=== PATIENT | female | born 1945 | race Caucasian/White ===

== ENCOUNTER 2018-11-12 06:05 | Inpatient (IN) | payer MEDICARE, MEDICAID ==
[2018-11-12 07:33] LABS: APPEARANCE,URINE SLIGHTLY-CLOUDY; BILIRUBIN,URINE NEGATIVE (NEGATIVE); GLUCOSE, URINE NEGATIVE (NEGATIVE); KETONES,URINE NEGATIVE (NEGATIVE); LEUKOCYTE ESTERASE,URINE NEGATIVE (NEGATIVE); NITRITE,URINE NEGATIVE (NEGATIVE); PROTEIN,URINE NEGATIVE (NEGATIVE); URINE SPECIFIC GRAVITY 1.016; UROBILINOGEN,URINE NEGATIVE mg/dL (<2.0)
[2018-11-12 07:34] LABS: COLOR,URINE YELLOW
[2018-11-12 09:04] LABS: ABSOLUTE BASOPHILS # (AUTO) 0.1 10^3/uL (0.0-0.2); ABSOLUTE EOSINOPHILS # (AUTO) 0.1 10^3/uL (0.0-0.6); ABSOLUTE LYMPHOCYTES (AUTO) 1.6 10^3/uL (0.5-4.7); ABSOLUTE MONOCYTES (AUTO) 0.4 10^3/uL (0.1-1.4); ABSOLUTE NEUT (AUTO) 5.1 10^3/uL (1.7-8.2); BASOPHILS % (AUTO) 1.4 % (0-2); HEMATOCRIT 30.8 % (36.0-47.0); HEMOGLOBIN 10.3 g/dL (12.0-15.5); LYMPHOCYTES % (AUTO) 21.7 % (13-45); MEAN CORPUSCULAR HEMOGLOBIN 28.1 pg (27.0-33.4); MEAN CORPUSCULAR HGB CONC 33.3 g/dL (32.0-36.0); MEAN CORPUSCULAR VOLUME 85 fl (80-97); MONOCYTES % (AUTO) 5.3 % (3-13); PLATELET COUNT 310 10^3/uL (150-450); RED BLOOD COUNT 3.65 10^6/uL (3.72-5.28); RED CELL DISTRIBUTION WIDTH 16.6 % (11.5-14.0); SEGMENTED NEUTROPHILS % (AUTO) 70.6 % (42-78); TOTAL CELLS COUNTED % (AUTO) 100 %; WHITE BLOOD COUNT 7.3 10^3/uL (4.0-10.5)
[2018-11-12 09:23] LABS: ALANINE AMINOTRANSFERASE 14 U/L (9-52); ALBUMIN 3.7 g/dL (3.5-5.0); ALKALINE PHOSPHATASE 101 U/L (38-126); ANION GAP 8 (5-19); ASPARTATE AMINO TRANSFERASE 17 U/L (14-36); BILIRUBIN,DIRECT 0.3 mg/dL (0.0-0.4); BILIRUBIN,TOTAL 0.4 mg/dL (0.2-1.3); BLOOD UREA NITROGEN 19 mg/dL (7-20); CALCIUM 9.4 mg/dL (8.4-10.2); CARBON DIOXIDE 25 mmol/L (22-30); CHLORIDE 105 mmol/L (98-107); CREATINE KINASE 38 U/L (30-135); GLUCOSE 89 mg/dL (75-110); POTASSIUM 3.6 mmol/L (3.6-5.0); SODIUM 138.1 mmol/L (137-145); TOTAL PROTEIN 6.9 g/dL (6.3-8.2)
[2018-11-12] MEDS ORDERED: POTASSI CL 20 MEQ/50 ML RIDER 20 MEQ/50 ML RTUPB IV ONE (09:31)
[2018-11-12 09:34] LABS: CREATINE KINASE MB 0.52 ng/mL (<4.55)
[2018-11-12 09:35] LABS: TROPONIN I < 0.012 ng/mL
[2018-11-12] MEDS ORDERED: ONDANSETRON HCL INJ/PF 4 MG/2 ML SDV IV ONE (10:17)
--- NOTE | 2018-11-12 11:24 | ER Document Report ---
Entered by MANJIT BLISS SCRIBE 11/12/18 0924 Acting as scribe for:LIBRADO PINEDA MD ED General - General Chief Complaint: General Weakness Stated Complaint: WEAKNESS Time Seen by Provider: 11/12/18 09:07 Notes: Patient is a 72-year-old female presenting to the emergency department complaining of paralysis. Patient states that earlier this morning she woke up and could not move at all. Patient states that in October 2017 she was admitted to [facility] for 6 days for the same incident. Patient states that she was given potassium for suspected hypokalemic periodic paralysis. This 72-year-old female patient was admitted to [facility] on 10/17/2018 for generalized muscle weakness. She stayed for 6 days. During that time she had extensive neurological work-up to include CT scans and MRI scans and found a bulging C5 disc, and a low potassium. She was given potassium. In talking with the daughter, it sounds like her diagnosis may have been hypokalemic periodic paralysis. She was discharged home where [place] [facility]. She had home health helping care for her. She reports that by this past Friday she was up walking some using her walker and felt that she was improved enough to come to [place] and visit her daughter. She had her nephew drive her down here. Early this morning she noticed an onset of the near paralysis similar to what she had at beginning of the month. She is able to move her extremities from side to side but cannot lift them up and hold them against gravity. After a work-up here and IV potassium, the patient denies any improvement, and mentions that she might just need to be placed in a rehab facility. - Related Data Allergies/Adverse Reactions: diphenhydramine [From Benadryl] Allergy (Verified 11/12/18 07:31) promethazine [From Phenergan] Allergy (Verified 11/12/18 07:31) Past Medical History - General Information source: Patient, Relative - Social History Smoking Status: Never Smoker Cigarette use (# per day): No Chew tobacco use (# tins/day): No Smoking Education Provided: No Frequency of alcohol use: None Drug Abuse: None Lives with: Family Family History: Reviewed & Not Pertinent Patient has suicidal ideation: No Patient has homicidal ideation: No - Past Medical History Cardiac Medical History: Reports: Hx Congestive Heart Failure, Hx Coronary Artery Disease, Hx Heart Attack - X 2, Hx Hypercholesterolemia, Hx Hypertension Pulmonary Medical History: Reports: Hx Asthma EENT Medical History: Reports: Eyes - Cataracts Neurological Medical History: Reports: Other - Possibly has hypokalemic periodic paralysis Endocrine Medical History: Reports: None Renal/ Medical History: Reports: None GI Medical History: Reports: None Skin Medical History: Reports None Psychiatric Medical History: Reports: Hx Anxiety Past Surgical History: Reports: Hx Abdominal Surgery - Gastric tumor resection, endoscopically, Hx Appendectomy, Hx Cardiac Surgery - Porcine aortic valve repla cement, Hx Cholecystectomy, Hx Coronary Artery Bypass Graft - 5 vessel bypass in 2003, Hx Coronary Stent - Several stents, currently has 9 stents with the last one being placed in , Hx Gynecologic Surgery - Ovarian cancer 1975 treated by hysterectomy, Hx Hysterectomy, Hx Vascular Surgery - Right carotid endarterectomy., Other - Left eye cataract. Right face melanoma excision. Review of Systems - Review of Systems Constitutional: Weakness EENT: No symptoms reported Cardiovascular: No symptoms reported Respiratory: No symptoms reported Gastrointestinal: No symptoms reported Genitourinary: See HPI Female Genitourinary: Post menopausal Musculoskeletal: See HPI, Neck pain Skin: No symptoms reported Hematologic/Lymphatic: No symptoms reported Neurological/Psychological: Weakness -: Yes All other systems reviewed and negative Physical Exam - Vital signs Vitals: Resp Pulse Ox 18 99 11/12/18 06:58 11/12/18 06:58 - Notes Notes: Physical Exam: General: Alert, appears well. HEENT: Normocephalic. Atraumatic. PERRL. Extraocular movements intact. Oropharynx clear. Neck: Supple. Non-tender. Respiratory: No respiratory distress. Clear and equal breath sounds bilaterally. Cardiovascular: Bruit in the right carotid artery. Abdominal: Normal Inspection. Non-tender. No distension. Normal Bowel Sounds. Back: Non-tender. No deformity or step off. Extremities: Muscle weakness when attempting to move against gravity. Upper extremities: Normal inspection. Normal ROM. Lower extremities: Normal inspection. No edema. Normal ROM. Neurological: Generalized paralysis. AAOx4. Normal speech. Psychological: Normal affect. Normal Mood. Skin: Warm. Dry. Normal color. Course - Vital Signs Vital signs: Temp Pulse Resp BP Pulse Ox 98.1 F 65 15 161/66 H 99 11/12/18 07:30 11/12/18 07:30 11/12/18 10:01 11/12/18 10:01 11/12/18 10:01 - Laboratory Result Diagrams: 11/12/18 08:50 11/12/18 08:50 Laboratory results interpreted by me: 11/12/18 08:50 RBC 3.65 L Hgb 10.3 L Hct 30.8 L RDW 16.6 H - EKG Interpretation by Me EKG shows normal: Sinus rhythm, [place], Intervals, ST-T Waves. abnormal: QRS Complexes - Borderline inferior Q waves Rate: Normal - 64 Rhythm: NSR - Consults Dr. Rodriguez Time consulted: 11:41 Consulted provider: will come to ER Discharge - Discharge Clinical Impression: Generalized muscle weakness, Hypokalemic periodic paralysis Condition: Stable Disposition: ADMITTED INPATIENT Admitting Provider: Michael (Hospitalist) Unit Admitted: CU Scribe Attestation: 11/12/18 11:47 I personally performed the services described in the documentation, reviewed and edited the documentation which was dictated to the scribe in my presence, and it accurately records my words and actions. I personally performed the services described in the documentation, reviewed and edited the documentation which was dictated to the scribe in my presence, and it accurately records my words and actions.
[2018-11-12 12:56] LABS: FREE T3 4.34 pg/mL (2.77-5.27); FREE T4 (FREE THYROXINE) 1.15 ng/dL (0.78-2.19)
[2018-11-12 13:10] LABS: THYROID STIMULATING HORMONE 2.7 uIU/mL (0.47-4.68)
[2018-11-12] MEDS ORDERED: PROMETHAZINE HCL INJ 25 MG/1 ML VIAL IV PRN (13:27)
[2018-11-12] MEDS ORDERED: ACETAMINOPHEN 325 MG TABLET PO PRN (13:27)
[2018-11-12] MEDS ORDERED: ONDANSETRON HCL INJ/PF 4 MG/2 ML SDV IV PRN (13:27)
[2018-11-12] MEDS ORDERED: TEMAZEPAM 7.5 MG CAPSULE PO PRN (13:27)
[2018-11-12] MEDS ORDERED: IPRATROPIUM/ALBUTEROL 0.5-2.5 MG/3 ML AMPUL NEB PRN (13:27)
[2018-11-12] MEDS ORDERED: OXYCODONE-ACETAMINOPHEN 5-325 MG TABLET PO PRN (13:27)
--- NOTE | 2018-11-12 13:57 | PDOC H&P ---
History of Present Illness Admission Date/PCP: 11/12/18 12:16 History of Present Illness: LIUDMILA BANERJEE is a 72 year old female past medical history of CAD status post PCI x12 stents, CABG, CVA, right carotid stent, hypertension, gastric cancer, recently hospitalized at [facility] for generalized weakness" below neck paralysis", stayed there for 6 days, had extensive neurologic and cardiac work-up, which were all negative, diagnosed with hypokalemic periodic paralysis started on steroids, discharged to rehab, left rehab 2 weeks ago, is back [facility], living independently, last Friday traveled to [place] to see her daughter, was doing fine until 2 days ago when she started feeling generalized weakness, last night about 1 AM she started to feel numbness below the neck similar to the episode prior to being hospitalized at [facility]. As per daughter patient was not discharged on either spironolactone or acetazolamide. Prior to recent hospitalization at [facility] her diuretics were increased by her web retailer. Rail Technician is Dr.Gregory Molina. Denies any excessive exercise, high carbohydrate diet, fever, chills, nausea, vomiting, diarrhea, constipation or any urinary symptoms. Bowel and bladder functions intact. On physical examination she is able to move her distal extremities however her proximal extremities are all weak, cannot left arms or legs against gravity. No focal neurological deficits, sensation is intact. Labs: Hemoglobin 10.3, potassium 3.6, magnesium 1.6, CK 38, CK-MB 0.52, troponin < 0012, TSH 2.7, T4 1.1, T3 4.3. Past Medical History Cardiac Medical History: Reports: Atrial Fibrillation, Congestive Heart Failure, Coronary Artery Disease, Myocardial Infarction - X 2, Hyperlipidema, Hypertension Pulmonary Medical History: Reports: Asthma EENT Medical History: Reports: Eyes - Cataracts Neurological Medical History: Reports: Other - Possibly has hypokalemic periodic paralysis Endocrine Medical History: Reports: None Renal/ Medical History: Reports: None GI Medical History: Reports: None Skin Medical History: Reports: None Past Surgical History Past Surgical History: Reports: Appendectomy, Cholecystectomy, Coronary Artery Bypass Graft - 5 vessel bypass in 2003, Coronary Stent - Several stents, currently has 9 stents with the last one being placed in , Hysterectomy, Vascular Surgery - Right carotid endarterectomy., Other - Left eye cataract. Right face melanoma excision. Social History Lives with: Family Smoking Status: Never Smoker Family History Family History: Reviewed & Not Pertinent Parental Family History Reviewed: Yes Children Family History Reviewed: Yes Sibling(s) Family History Reviewed.: Yes Medication/Allergy Allergies/Adverse Reactions: diphenhydramine [From Benadryl] Allergy (Verified 11/12/18 07:31) promethazine [From Phenergan] Allergy (Verified 11/12/18 07:31) Review of Systems Review of Systems: as per hpi Physical Exam Vital Signs: Temp Pulse Resp BP Pulse Ox 98.1 F 65 15 178/88 H 99 11/12/18 07:30 11/12/18 07:30 11/12/18 12:01 11/12/18 12:01 11/12/18 12:01 Intake & Output 11/11/18 11/12/18 11/13/18 06:59 06:59 06:59 Intake Total 50 Balance 50 Weight 58.967 kg General appearance: PRESENT: no acute distress, well-developed, well-nourished Head exam: PRESENT: atraumatic, normocephalic Eye exam: PRESENT: conjunctiva pink, EOMI, PERRLA. ABSENT: scleral icterus Ear exam: PRESENT: normal external ear exam Mouth exam: PRESENT: moist, tongue midline Neck exam: ABSENT: carotid bruit, JVD, lymphadenopathy, thyromegaly Respiratory exam: PRESENT: clear to auscultation keven. ABSENT: rales, rhonchi, wheezes Cardiovascular exam: PRESENT: RRR. ABSENT: diastolic murmur, rubs, systolic murmur Pulses: PRESENT: normal dorsalis pedis pul Vascular exam: PRESENT: normal capillary refill GI/Abdominal exam: PRESENT: normal bowel sounds, soft. ABSENT: distended, guarding, mass, organolmegaly, rebound, tenderness Rectal exam: PRESENT: deferred Extremities exam: PRESENT: full ROM. ABSENT: calf tenderness, clubbing, pedal edema Neurological exam: PRESENT: alert, awake, oriented to person, oriented to place, oriented to time, oriented to situation, CN II-XII grossly intact, motor sensory deficit - Distal extremity strength 5/5. Proximal extremities strength 3/5. Psychiatric exam: PRESENT: appropriate affect, normal mood. ABSENT: homicidal ideation, suicidal ideation Skin exam: PRESENT: dry, intact, warm. ABSENT: cyanosis, rash Results Laboratory Results: 11/12/18 08:50 11/12/18 08:50 11/12/18 11/12/18 11/12/18 07:06 08:50 08:50 WBC 7.3 RBC 3.65 L Hgb 10.3 L Hct 30.8 L MCV 85 MCH 28.1 MCHC 33.3 RDW 16.6 H Plt Count 310 Seg Neutrophils % 70.6 Lymphocytes % 21.7 Monocytes % 5.3 Eosinophils % 1.0 Basophils % 1.4 Absolute Neutrophils 5.1 Absolute Lymphocytes 1.6 Absolute Monocytes 0.4 Absolute Eosinophils 0.1 Absolute Basophils 0.1 Sodium 138.1 Potassium 3.6 Chloride 105 Carbon Dioxide 25 Anion Gap 8 BUN 19 Creatinine 0.81 Est GFR ( Amer) > 60 Est GFR (Non-Af Amer) > 60 Glucose 89 Calcium 9.4 Magnesium Total Bilirubin 0.4 AST 17 ALT 14 Alkaline Phosphatase 101 Total Protein 6.9 Albumin 3.7 TSH Free T4 Free T3 pg/mL Urine Color YELLOW Urine Appearance SLIGHTLY-CLOUDY Urine pH 6.0 Ur Specific [place] 1.016 Urine Protein NEGATIVE Urine Glucose (UA) NEGATIVE Urine Ketones NEGATIVE Urine Blood NEGATIVE Urine Nitrite NEGATIVE Ur Leukocyte Esterase NEGATIVE Urine WBC (Auto) 3 Urine RBC (Auto) 1 11/12/18 11/12/18 08:50 08:50 WBC RBC Hgb Hct MCV MCH MCHC RDW Plt Count Seg Neutrophils % Lymphocytes % Monocytes % Eosinophils % Basophils % Absolute Neutrophils Absolute Lymphocytes Absolute Monocytes Absolute Eosinophils Absolute Basophils Sodium Potassium Chloride Carbon Dioxide Anion Gap BUN Creatinine Est GFR ( Amer) Est GFR (Non-Af Amer) Glucose Calcium Magnesium 1.6 Total Bilirubin AST ALT Alkaline Phosphatase Total Protein Albumin TSH 2.70 Free T4 1.15 Free T3 pg/mL 4.34 Urine Color Urine Appearance Urine pH Ur Specific [place] Urine Protein Urine Glucose (UA) Urine Ketones Urine Blood Urine Nitrite Ur Leukocyte Esterase Urine WBC (Auto) Urine RBC (Auto) 11/12/18 11/12/18 08:50 08:50 Creatine Kinase 38 CK-MB (CK-2) 0.52 Troponin I < 0.012 Assessment and Plan - Diagnosis (1) Generalized muscle weakness Is this a current diagnosis for this admission?: Yes Plan: Likely due to hypokalemic periodic paralysis. No EKG changes. Potassium 3.6, magnesium 1.6, CK 38, TSH 2.7, T4 1.1, T3 4.3 Admit to telemetry, IV steroids, potassium level every 8, PT/ST/OT, supportive measures, spironolactone, acetazolamide. Will DC to rehab upon symptomatic improvement. (2) Hypokalemic periodic paralysis Is this a current diagnosis for this admission?: Yes Plan: As per #1. (3) CAD (coronary artery disease) Qualifiers: Coronary Disease-Associated Artery/Lesion type: bypass graft, autologous artery Associated angina: without angina Qualified Code(s): I25.810 - Ather osclerosis of coronary artery bypass graft(s) without angina pectoris Is this a current diagnosis for this admission?: Yes Plan: Denies any anginal symptoms. Status post PCI x4 and CABG. Rail Technician Dr. Demarcus Molina at [facility]. Continue antiplatelets, beta-blockers, CINDY, statins. (4) HTN (hypertension) Is this a current diagnosis for this admission?: Yes Plan: Restart home meds. Monitor vitals. Adjust meds as needed. PRN hydralazine. (5) Hyperlipidemia Is this a current diagnosis for this admission?: Yes Plan: Restart home meds. (6) CVA (cerebral vascular accident) Is this a current diagnosis for this admission?: Yes Plan: History of remote CVA. Optimize BP, antiplatelets, statins. PT/OT.
--- NOTE | 2018-11-12 14:19 | ADVANCED CARE ---
- Diagnosis (1) Generalized muscle weakness Diagnosis Current: Yes (2) Hypokalemic periodic paralysis Diagnosis Current: Yes (3) CAD (coronary artery disease) Diagnosis Current: Yes (4) HTN (hypertension) Diagnosis Current: Yes (5) Hyperlipidemia Diagnosis Current: Yes (6) CVA (cerebral vascular accident) Diagnosis Current: Yes Attendance: Melva He daughter who has POA. Resuscitation Status: Do Not Intubate Discussion: Patient with underlying multiple comorbidities such as CAD, CABG, CVA, hypertension, gastric cancer, presenting with generalized weakness likely due to periodic hypokalemic paralysis. Patient has a living well POA her daughter who was present at the bedside. Discussed CODE STATUS, patient wants to be DNR/DNI at this point. Designated POA Melva He is a [employer] and can be reached at [phone]. Time Spent: 20 minutes
[2018-11-12] MEDS ORDERED: NORMAL SALINE 250 ML IV ONE (16:51)
[2018-11-12] MEDS: SPIRONOLACTONE 25 MG TABLET PO SCH (17:16)
[2018-11-12] MEDS: METHYLPREDNISOLONE INJ 40 MG/1 ML SDV IV SCH ×2 (17:18→21:19)
[2018-11-12] MEDS: HEPARIN SOD (PORCINE) 5,000 UNIT/ML 1 ML SYRINGE SUBCUT SCH ×2 (17:21→21:19)
[2018-11-12] MEDS: DOCUSATE SODIUM 100 MG CAPSULE PO SCH (18:48)
[2018-11-12] MEDS: POTASSIUM CHLORIDE 10 MEQ CAPSULE.ER PO SCH (18:48)
[2018-11-12] MEDS: HYDRALAZINE HCL INJ/PF 20 MG/1 ML SDV IV PRN (21:17)
[2018-11-12] MEDS: FAMOTIDINE 20 MG TABLET PO SCH (21:19)
--- NOTE | 2018-11-12 23:00 | EKG REPORT ---
SEVERITY:- BORDERLINE ECG - SINUS RHYTHM BORDERLINE INFERIOR Q WAVES : Confirmed by: Maral Hooks 12-Nov-2018 22:58:42
[2018-11-13 04:52] LABS: ABSOLUTE LYMPHOCYTES (AUTO) 0.7 10^3/uL (0.5-4.7); ABSOLUTE NEUT (AUTO) 2.9 10^3/uL (1.7-8.2); BASOPHILS % (AUTO) 0.2 % (0-2); HEMATOCRIT 33.7 % (36.0-47.0); HEMOGLOBIN 11.2 g/dL (12.0-15.5); LYMPHOCYTES % (AUTO) 18.8 % (13-45); MEAN CORPUSCULAR HEMOGLOBIN 28.1 pg (27.0-33.4); MEAN CORPUSCULAR HGB CONC 33.2 g/dL (32.0-36.0); MEAN CORPUSCULAR VOLUME 85 fl (80-97); MONOCYTES % (AUTO) 0.8 % (3-13); PLATELET COUNT 317 10^3/uL (150-450); RED BLOOD COUNT 3.98 10^6/uL (3.72-5.28); RED CELL DISTRIBUTION WIDTH 16.7 % (11.5-14.0); SEGMENTED NEUTROPHILS % (AUTO) 80.2 % (42-78); TOTAL CELLS COUNTED % (AUTO) 100 %; WHITE BLOOD COUNT 3.6 10^3/uL (4.0-10.5)
[2018-11-13 05:23] LABS: ANION GAP 10 (5-19); BLOOD UREA NITROGEN 15 mg/dL (7-20); CARBON DIOXIDE 19 mmol/L (22-30); CHLORIDE 110 mmol/L (98-107); GLUCOSE 137 mg/dL (75-110); POTASSIUM 4.5 mmol/L (3.6-5.0); SODIUM 139.1 mmol/L (137-145)
[2018-11-13] MEDS: HYDRALAZINE HCL INJ/PF 20 MG/1 ML SDV IV PRN (06:16)
[2018-11-13] MEDS: METHYLPREDNISOLONE INJ 40 MG/1 ML SDV IV SCH ×3 (06:21→21:50)
[2018-11-13] MEDS: HEPARIN SOD (PORCINE) 5,000 UNIT/ML 1 ML SYRINGE SUBCUT SCH ×3 (06:21→21:50)
[2018-11-13] MEDS ORDERED: NITROGLYCERIN 0.4 MG/TAB 25 TAB/BOTTLE ONE (06:37)
[2018-11-13] MEDS: NITROGLYCERIN 0.4 MG/TAB 25 TAB/BOTTLE SL PRN (06:52)
[2018-11-13] MEDS ORDERED: ALPRAZOLAM 0.5 MG TABLET PO PRN (08:50)
[2018-11-13] MEDS ORDERED: RANOLAZINE 1000 MG PO SCH (10:00)
[2018-11-13] MEDS ORDERED: (PENDING PHARMACY ID) (Isosorbide Mononitrate [Isosorbide Mononitrate Er] 120 MG) PO SCH (10:00)
[2018-11-13] MEDS: POTASSIUM CHLORIDE 10 MEQ CAPSULE.ER PO SCH ×2 (10:19→17:16)
[2018-11-13] MEDS: DOCUSATE SODIUM 100 MG CAPSULE PO SCH ×2 (10:19→17:16)
[2018-11-13] MEDS: ISOSORBIDE MONONITRATE 60 MG TAB.ER.24H PO SCH (10:20)
[2018-11-13] MEDS: PRAMIPEXOLE DI-HCL 0.5 MG TABLET PO SCH (10:20)
[2018-11-13] MEDS: SPIRONOLACTONE 25 MG TABLET PO SCH (10:20)
[2018-11-13] MEDS: TICAGRELOR 90 MG TABLET PO SCH ×2 (10:20→17:16)
[2018-11-13] MEDS: RANOLAZINE 500 MG TAB.SR.12H PO SCH ×2 (10:20→21:50)
[2018-11-13] MEDS: FAMOTIDINE 20 MG TABLET PO SCH ×2 (10:20→21:50)
[2018-11-13] MEDS: NEBIVOLOL HCL 2.5 MG TABLET PO SCH (10:20)
[2018-11-13] MEDS: FLUTICASONE PROPIONATE HFA 110 MCG/PUFF 12 GM MDI IH SCH ×2 (10:21→17:16)
--- NOTE | 2018-11-13 10:48 | PDOC PROGRESS REPORT ---
Subjective Progress Note for:: 11/13/18 Subjective:: LIUDMILA BANERJEE is a 72 year old female past medical history of CAD status post PCI x12 stents, CABG, CVA, right carotid stent, hypertension, gastric cancer, recently hospitalized at [facility] for generalized weakness" below neck paralysis", stayed there for 6 days, had extensive neurologic and cardiac work-up, which were all negative, diagnosed with hypokalemic periodic paralysis started on steroids, discharged to rehab, left rehab 2 weeks ago, is b ack to baseline, living independently, last Friday traveled to [place] to see her daughter, was doing fine until 2 days ago when she started feeling generalized weakness, last night about 1 AM she started to feel numbness below the neck similar to the episode prior to being hospitalized at [facility]. As per daughter patient was not discharged on either spironolactone or acetazolamide. Prior to recent hospitalization at [facility] her diuretics were increased by her information lead. Apartment Community Manager is Dr.Gregory Molina. Denies any excessive exercise, high carbohydrate diet, fever, chills, nausea, vomiting, diarrhea, constipation or any urinary symptoms. Bowel and bladder fun ctions intact. On physical examination she is able to move her distal extremities however her proximal extremities are all weak, cannot left arms or legs against gravity. No focal neurological deficits, sensation is intact. Labs: Hemoglobin 10.3, potassium 3.6, magnesium 1.6, CK 38, CK-MB 0.52, troponin < 0012, TSH 2.7, T4 1.1, T3 4.3. 11/13/2018. No acute events overnight, significant improvement of her symptoms, patient able to lift bilateral upper extremity against gravity, able to turn in the bed. Still complaining of proximal bilateral lower extremity weakness, denies any fever, chills, nausea, vomiting, diarrhea, constipation or any urinary symptoms. Reason For Visit: HYPOKALEMIC PERIODIC PARALYSIS Physical Exam Vital Signs: Temp Pulse Resp BP Pulse Ox 97.7 F 80 16 151/49 H 96 11/13/18 07:58 11/13/18 08:32 11/13/18 08:32 11/13/18 07:58 11/13/18 08:32 Intake & Output 11/12/18 11/13/18 11/14/18 06:59 06:59 06:59 Intake Total 167 Balance 167 Weight 65.8 kg General appearance: PRESENT: no acute distress, well-developed, well-nourished Head exam: PRESENT: atraumatic, normocephalic Eye exam: PRESENT: conjunctiva pink, EOMI, PERRLA. ABSENT: scleral icterus Ear exam: PRESENT: normal external ear exam Mouth exam: PRESENT: moist, tongue midline Neck exam: ABSENT: carotid bruit, JVD, lymphadenopathy, thyromegaly Respiratory exam: PRESENT: clear to auscultation keven. ABSENT: rales, rhonchi, wheezes Cardiovascular exam: PRESENT: RRR. ABSENT: diastolic murmur, rubs, systolic murmur Pulses: PRESENT: normal dorsalis pedis pul Vascular exam: PRESENT: normal capillary refill GI/Abdominal exam: PRESENT: normal bowel sounds, soft. ABSENT: distended, guarding, mass, organolmegaly, rebound, tenderness Rectal exam: PRESENT: deferred Extremities exam: PRESENT: full ROM. ABSENT: calf tenderness, clubbing, pedal edema Neurological exam: PRESENT: alert, awake, oriented to person, oriented to place, oriented to time, oriented to situation, CN II-XII grossly intact. ABSENT: motor sensory deficit - Bilateral lower extremity proximal muscle weakness strength 3/5. Bilateral upper extremity proximal muscle weakness, strength 4/5. Psychiatric exam: PRESENT: appropriate affect, normal mood. ABSENT: homicidal ideation, suicidal ideation Skin exam: PRESENT: dry, intact, warm. ABSENT: cyanosis, rash Results Laboratory Results: 11/13/18 04:06 11/13/18 04:06 11/12/18 11/12/18 11/12/18 08:50 14:23 22:01 WBC RBC Hgb Hct MCV MCH MCHC RDW Plt Count Seg Neutrophils % Lymphocytes % Monocytes % Eosinophils % Basophils % Absolute Neutrophils Absolute Lymphocytes Absolute Monocytes Absolute Eosinophils Absolute Basophils Sodium Potassium 3.9 4.7 Chloride Carbon Dioxide Anion Gap BUN Creatinine Est GFR ( Amer) Est GFR (Non-Af Amer) Glucose Calcium TSH 2.70 Free T4 1.15 Free T3 pg/mL 4.34 11/13/18 11/13/18 04:06 04:06 WBC 3.6 L RBC 3.98 Hgb 11.2 L Hct 33.7 L MCV 85 MCH 28.1 MCHC 33.2 RDW 16.7 H Plt Count 317 Seg Neutrophils % 80.2 H Lymphocytes % 18.8 Monocytes % 0.8 L Eosinophils % 0.0 Basophils % 0.2 Absolute Neutrophils 2.9 Absolute Lymphocytes 0.7 Absolute Monocytes 0.0 L Absolute Eosinophils 0.0 Absolute Basophils 0.0 Sodium 139.1 Potassium 4.5 Chloride 110 H Carbon Dioxide 19 L Anion Gap 10 BUN 15 Creatinine 0.75 Est GFR ( Amer) > 60 Est GFR (Non-Af Amer) > 60 Glucose 137 H Calcium 10.0 TSH Free T4 Free T3 pg/mL 11/12/18 11/12/18 08:50 08:50 Creatine Kinase 38 CK-MB (CK-2) 0.52 Troponin I < 0.012 Assessment and Plan - Diagnosis (1) Generalized muscle weakness Is this a current diagnosis for this admission?: Yes Plan: Moderate improvement. Able to lift bilateral upper extremity against gravity. Likely due to hypokalemic periodic paralysis. No EKG changes. Potassium 3.6, magnesium 1.6, CK 38, TSH 2.7, T4 1.1, T3 4.3 on admission. Electrolytes WNL. Continue telemetry, IV steroids, daily BMP, PT/ST/OT, supportive measures, spironolactone, acetazolamide. Patient would like to be discharged to rehab at [facility]. Discharge planning consulted. (2) Hypokalemic periodic paralysis Is this a current diagnosis for this admission?: Yes Plan: As per #1. (3) CAD (coronary artery disease) Qualifiers: Coronary Disease-Associated Artery/Lesion type: bypass graft, autologous artery Associated angina: without angina Qualified Code(s): I25.810 - Ath erosclerosis of coronary artery bypass graft(s) without angina pectoris Is this a current diagnosis for this admission?: Yes Plan: Denies any anginal symptoms. Status post PCI x4 and CABG. Apartment Community Manager Dr. Demarcus Molina at [facility]. Continue antiplatelets, beta-blockers, CINDY, statins. (4) HTN (hypertension) Is this a current diagnosis for this admission?: Yes Plan: Restart home meds. Monitor vitals. Adjust meds as needed. PRN hydralazine. (5) Hyperlipidemia Is this a current diagnosis for this admission?: Yes Plan: Restart home meds. (6) CVA (cerebral vascular accident) Is this a current diagnosis for this admission?: Yes Plan: History of remote CVA. Optimize BP, antiplatelets, statins. PT/OT.
[2018-11-13] MEDS: ATORVASTATIN CALCIUM 80 MG TABLET PO SCH (21:50)
[2018-11-13] MEDS ORDERED: (PENDING PHARMACY ID) (Rosuvastatin Calcium [Crestor] 40 MG) PO SCH (22:00)
[2018-11-14] MEDS: HEPARIN SOD (PORCINE) 5,000 UNIT/ML 1 ML SYRINGE SUBCUT SCH ×3 (05:57→21:30)
[2018-11-14] MEDS: METHYLPREDNISOLONE INJ 40 MG/1 ML SDV IV SCH ×3 (05:57→21:30)
[2018-11-14] MEDS: HYDRALAZINE HCL INJ/PF 20 MG/1 ML SDV IV PRN (05:57)
[2018-11-14 06:01] LABS: ABSOLUTE LYMPHOCYTES (AUTO) 0.6 10^3/uL (0.5-4.7); ABSOLUTE MONOCYTES (AUTO) 0.2 10^3/uL (0.1-1.4); ABSOLUTE NEUT (AUTO) 8.3 10^3/uL (1.7-8.2); BASOPHILS % (AUTO) 0.1 % (0-2); HEMATOCRIT 28.6 % (36.0-47.0); HEMOGLOBIN 9.6 g/dL (12.0-15.5); LYMPHOCYTES % (AUTO) 6.5 % (13-45); MEAN CORPUSCULAR HEMOGLOBIN 28.4 pg (27.0-33.4); MEAN CORPUSCULAR HGB CONC 33.5 g/dL (32.0-36.0); MEAN CORPUSCULAR VOLUME 85 fl (80-97); MONOCYTES % (AUTO) 1.8 % (3-13); PLATELET COUNT 263 10^3/uL (150-450); RED BLOOD COUNT 3.37 10^6/uL (3.72-5.28); RED CELL DISTRIBUTION WIDTH 16.6 % (11.5-14.0); SEGMENTED NEUTROPHILS % (AUTO) 91.6 % (42-78); TOTAL CELLS COUNTED % (AUTO) 100 %
[2018-11-14 06:05] LABS: WHITE BLOOD COUNT 9.1 10^3/uL (4.0-10.5)
[2018-11-14 06:07] LABS: ANION GAP 8 (5-19); BLOOD UREA NITROGEN 33 mg/dL (7-20); CALCIUM 9.5 mg/dL (8.4-10.2); CARBON DIOXIDE 20 mmol/L (22-30); CHLORIDE 109 mmol/L (98-107); GLUCOSE 135 mg/dL (75-110); POTASSIUM 5.2 mmol/L (3.6-5.0); SODIUM 136.9 mmol/L (137-145)
[2018-11-14] MEDS: ISOSORBIDE MONONITRATE 60 MG TAB.ER.24H PO SCH (09:31)
[2018-11-14] MEDS: DOCUSATE SODIUM 100 MG CAPSULE PO SCH ×2 (09:31→17:48)
[2018-11-14] MEDS: SPIRONOLACTONE 25 MG TABLET PO SCH (09:32)
[2018-11-14] MEDS: NEBIVOLOL HCL 2.5 MG TABLET PO SCH (09:32)
[2018-11-14] MEDS: TICAGRELOR 90 MG TABLET PO SCH ×2 (09:32→17:48)
[2018-11-14] MEDS: FAMOTIDINE 20 MG TABLET PO SCH ×2 (09:32→21:30)
[2018-11-14] MEDS: PRAMIPEXOLE DI-HCL 0.5 MG TABLET PO SCH (09:32)
[2018-11-14] MEDS: RANOLAZINE 500 MG TAB.SR.12H PO SCH ×2 (09:32→21:30)
[2018-11-14] MEDS: FLUTICASONE PROPIONATE HFA 110 MCG/PUFF 12 GM MDI IH SCH ×2 (09:32→17:48)
--- NOTE | 2018-11-14 12:27 | PDOC PROGRESS REPORT ---
Subjective Progress Note for:: 11/14/18 Subjective:: LIUDMILA BANERJEE is a 72 year old female past medical history of CAD status post PCI x12 stents, CABG, CVA, right carotid stent, hypertension, gastric cancer, recently hospitalized at [facility] at [facility] for generalized weakness" below neck paralysis", stayed there for 6 days, had extensive neurologic and cardiac work-up, which were all negative, diagnosed with hypokalemic periodic paralysis started on steroids, discharged to rehab, left rehab 2 weeks ago, is b ack to baseline, living independently, last Friday traveled to [place] to see her daughter, was doing fine until 2 days ago when she started feeling generalized weakness, last night about 1 AM she started to feel numbness below the neck similar to the episode prior to being hospitalized at [facility]. As per daughter patient was not discharged on either spironolactone or acetazolamide. Prior to recent hospitalization at [facility] her diuretics were increased by her steel erector apprentice. Applications Programmer is Dr.Gregory Molina. Denies any excessive exercise, high carbohydrate diet, fever, chills, nausea, vomiting, diarrhea, constipation or any urinary symptoms. Bowel and bladder fun ctions intact. On physical examination she is able to move her distal extremities however her proximal extremities are all weak, cannot left arms or legs against gravity. No focal neurological deficits, sensation is intact. Labs: Hemoglobin 10.3, potassium 3.6, magnesium 1.6, CK 38, CK-MB 0.52, troponin < 0012, TSH 2.7, T4 1.1, T3 4.3. 11/13/2018. No acute events overnight, significant improvement of her symptoms, patient able to lift bilateral upper extremity against gravity, able to turn in the bed. Still complaining of proximal bilateral lower extremity weakness, denies any fever, chills, nausea, vomiting, diarrhea, constipation or any urinary symptoms. 11/14/2018. No acute events overnight. Significant improvement of upper extremity weakness, patient able to feed herself, able to hold her upper extremities against gravity. Lower extremity patient able to bend her knees and move her legs however not able to hold lower extremities up against gravity. Denies any fever, chills, nausea, vomiting, diarrhea, constipation or any urinary symptoms. Reason For Visit: HYPOKALEMIC PERIODIC PARALYSIS Physical Exam Vital Signs: Temp Pulse Resp BP Pulse Ox 97.7 F 69 16 162/62 H 96 11/14/18 07:48 11/14/18 07:48 11/14/18 07:48 11/14/18 07:48 11/14/18 07:48 Intake & Output 11/13/18 11/14/18 11/15/18 06:59 06:59 06:59 Intake Total 167 1059 Output Total 700 Balance 167 359 Weight 65.8 kg 65.4 kg General appearance: PRESENT: no acute distress, well-developed, well-nourished Head exam: PRESENT: atraumatic, normocephalic Eye exam: PRESENT: EOMI, PERRLA Ear exam: PRESENT: normal external ear exam Neck exam: ABSENT: carotid bruit, JVD, lymphadenopathy, thyromegaly Respiratory exam: PRESENT: clear to auscultation keven. ABSENT: rales, rhonchi, wheezes Cardiovascular exam: PRESENT: RRR. ABSENT: diastolic murmur, rubs, systolic murmur GI/Abdominal exam: PRESENT: normal bowel sounds, soft. ABSENT: distended, guarding, mass, organolmegaly, rebound, tenderness Extremities exam: PRESENT: full ROM. ABSENT: calf tenderness, clubbing, pedal edema Neurological exam: PRESENT: alert, awake, oriented to person, oriented to place, oriented to time, oriented to situation, CN II-XII grossly intact, motor sensory deficit - BUE strength 4/5. BLE strength 3/5. Results Laboratory Results: 11/14/18 05:30 11/14/18 05:30 11/14/18 11/14/18 05:30 05:30 WBC 9.1 D RBC 3.37 L Hgb 9.6 L Hct 28.6 L MCV 85 MCH 28.4 MCHC 33.5 RDW 16.6 H Plt Count 263 Seg Neutrophils % 91.6 H Lymphocytes % 6.5 L Monocytes % 1.8 L Eosinophils % 0.0 Basophils % 0.1 Absolute Neutrophils 8.3 H Absolute Lymphocytes 0.6 Absolute Monocytes 0.2 Absolute Eosinophils 0.0 Absolute Basophils 0.0 Sodium 136.9 L Potassium 5.2 H Chloride 109 H Carbon Dioxide 20 L Anion Gap 8 BUN 33 H Creatinine 0.98 Est GFR ( Amer) > 60 Est GFR (Non-Af Amer) 56 L Glucose 135 H Calcium 9.5 11/12/18 11/12/18 08:50 08:50 Creatine Kinase 38 CK-MB (CK-2) 0.52 Troponin I < 0.012 Assessment and Plan - Diagnosis (1) Generalized muscle weakness Is this a current diagnosis for this admission?: Yes Plan: Moderate improvement. Able to lift bilateral upper extremity against gravity. Moves bilateral lower extremity. Unable to lift against gravity. Likely due to hypokalemic periodic paralysis. No EKG changes. Potassium 3.6, magnesium 1.6, CK 38, TSH 2.7, T4 1.1, T3 4.3 on admission. Electrolytes WNL. Continue telemetry, IV steroids, daily BMP, PT/ST/OT, supportive measures, spironolactone, acetazolamide. Patient would like to be discharged to rehab at [facility]. Discharge planning consulted. (2) Hypokalemic periodic paralysis Is this a current diagnosis for this admission?: Yes Plan: As per #1. (3) CAD (coronary artery disease) Qualifiers: Coronary Disease-Associated Artery/Lesion type: bypass graft, autologous ar rudolph Associated angina: without angina Qualified Code(s): I25.810 - Atherosclerosis of coronary artery bypass graft(s) without angina pectoris Is this a current diagnosis for this admission?: Yes Plan: Denies any anginal symptoms. Status post PCI x4 and CABG. Applications Programmer Dr. Demarcus Molina at [facility]. Continue antiplatelets, beta-blockers, CINDY, statins. (4) HTN (hypertension) Is this a current diagnosis for this admission?: Yes Plan: Restart home meds. Monitor vitals. Adjust meds as needed. PRN hydralazine. (5) Hyperlipidemia Is this a current diagnosis for this admission?: Yes Plan: Restart home meds. (6) CVA (cerebral vascular accident) Is this a current diagnosis for this admission?: Yes Plan: History of remote CVA. Optimize BP, antiplatelets, statins. PT/OT.
[2018-11-14] MEDS: ATORVASTATIN CALCIUM 80 MG TABLET PO SCH (21:30)
--- NOTE | 2018-11-14 23:45 | EKG REPORT ---
SEVERITY:- ABNORMAL ECG - SINUS RHYTHM PROBABLE INFERIOR INFARCT, OLD : Confirmed by: Maral Hooks 14-Nov-2018 23:44:28
[2018-11-15] MEDS: METHYLPREDNISOLONE INJ 40 MG/1 ML SDV IV SCH ×3 (05:11→22:50)
[2018-11-15] MEDS: HEPARIN SOD (PORCINE) 5,000 UNIT/ML 1 ML SYRINGE SUBCUT SCH ×3 (05:11→22:50)
[2018-11-15 07:04] LABS: ABSOLUTE LYMPHOCYTES (AUTO) 0.7 10^3/uL (0.5-4.7); ABSOLUTE MONOCYTES (AUTO) 0.3 10^3/uL (0.1-1.4); ABSOLUTE NEUT (AUTO) 8.9 10^3/uL (1.7-8.2); BASOPHILS % (AUTO) 0.1 % (0-2); HEMATOCRIT 30.1 % (36.0-47.0); LYMPHOCYTES % (AUTO) 6.9 % (13-45); MEAN CORPUSCULAR HGB CONC 33.3 g/dL (32.0-36.0); MEAN CORPUSCULAR VOLUME 84 fl (80-97); PLATELET COUNT 296 10^3/uL (150-450); RED BLOOD COUNT 3.58 10^6/uL (3.72-5.28); RED CELL DISTRIBUTION WIDTH 16.8 % (11.5-14.0); TOTAL CELLS COUNTED % (AUTO) 100 %; WHITE BLOOD COUNT 9.9 10^3/uL (4.0-10.5)
[2018-11-15 07:16] LABS: ANION GAP 9 (5-19); BLOOD UREA NITROGEN 42 mg/dL (7-20); CALCIUM 9.7 mg/dL (8.4-10.2); CARBON DIOXIDE 19 mmol/L (22-30); CHLORIDE 108 mmol/L (98-107); GLUCOSE 108 mg/dL (75-110); POTASSIUM 4.4 mmol/L (3.6-5.0); SODIUM 135.7 mmol/L (137-145)
--- NOTE | 2018-11-15 10:05 | PDOC PROGRESS REPORT ---
Subjective Progress Note for:: 11/15/18 Subjective:: LIUDMILA BANERJEE is a 72 year old female past medical history of CAD status post PCI x12 stents, CABG, CVA, right carotid stent, hypertension, gastric cancer, recently hospitalized at [facility] at [facility] for generalized weakness" below neck paralysis", stayed there for 6 days, had extensive neurologic and cardiac work-up, which were all negative, diagnosed with hypokalemic periodic paralysis started on steroids, discharged to rehab, left rehab 2 weeks ago, is b ack to baseline, living independently, last Friday traveled to [place] to see her daughter, was doing fine until 2 days ago when she started feeling generalized weakness, last night about 1 AM she started to feel numbness below the neck similar to the episode prior to being hospitalized at [facility]. As per daughter patient was not discharged on either spironolactone or acetazolamide. Prior to recent hospitalization at [facility] her diuretics were increased by her home office claim specialist. Electric Motors Salesperson is Dr.Gregory Molina. Denies any excessive exercise, high carbohydrate diet, fever, chills, nausea, vomiting, diarrhea, constipation or any urinary symptoms. Bowel and bladder fun ctions intact. On physical examination she is able to move her distal extremities however her proximal extremities are all weak, cannot left arms or legs against gravity. No focal neurological deficits, sensation is intact. Labs: Hemoglobin 10.3, potassium 3.6, magnesium 1.6, CK 38, CK-MB 0.52, troponin < 0012, TSH 2.7, T4 1.1, T3 4.3. 11/13/2018. No acute events overnight, significant improvement of her symptoms, patient able to lift bilateral upper extremity against gravity, able to turn in the bed. Still complaining of proximal bilateral lower extremity weakness, denies any fever, chills, nausea, vomiting, diarrhea, constipation or any urinary symptoms. 11/14/2018. No acute events overnight. Significant improvement of upper extremity weakness, patient able to feed herself, able to hold her upper extremities against gravity. Lower extremity patient able to bend her knees and move her legs however not able to hold lower extremities up against gravity. Denies any fever, chills, nausea, vomiting, diarrhea, constipation or any urinary symptoms. 11/15/2017. No acute events overnight. Significant improvement of weakness. Able to function properly with her upper extremities, lower extremities is improving, able to hold her legs against gravity for about a second, p.o. tole rant, having normal bowel and bladder movements. Denies any fever, chills, nausea, vomiting, diarrhea, constipation or any urinary symptoms. Reason For Visit: GENERALIZED MUSCLE WEAKNESS,HYPOKALEMIC PERIODIC Physical Exam Vital Signs: Temp Pulse Resp BP Pulse Ox 97.9 F 60 20 144/46 H 97 11/14/18 23:11 11/15/18 07:00 11/14/18 23:11 11/14/18 23:11 11/14/18 23:11 Intake & Output 11/14/18 11/15/18 11/16/18 06:59 06:59 06:59 Intake Total 1059 1342 Output Total 700 Balance 359 1342 Weight 65.4 kg 66.5 kg General appearance: PRESENT: no acute distress, well-developed, well-nourished Head exam: PRESENT: atraumatic, normocephalic Eye exam: PRESENT: conjunctiva pink, EOMI, PERRLA. ABSENT: scleral icterus Respiratory exam: PRESENT: clear to auscultation keven. ABSENT: rales, rhonchi, wheezes Cardiovascular exam: PRESENT: RRR. ABSENT: diastolic murmur, rubs, systolic murmur GI/Abdominal exam: PRESENT: normal bowel sounds, soft. ABSENT: distended, guarding, mass, organolmegaly, rebound, tenderness Neurological exam: PRESENT: alert, awake, oriented to person, oriented to place, oriented to time, oriented to situation, CN II-XII grossly intact, motor sensory deficit - BUE St 4/[address] 3/5 Results Laboratory Results: 11/15/18 06:18 11/15/18 06:18 11/15/18 11/15/18 06:18 06:18 WBC 9.9 RBC 3.58 L Hgb 10.0 L Hct 30.1 L MCV 84 MCH 28.0 MCHC 33.3 RDW 16.8 H Plt Count 296 Seg Neutrophils % 90.0 H Lymphocytes % 6.9 L Monocytes % 3.0 Eosinophils % 0.0 Basophils % 0.1 Absolute Neutrophils 8.9 H Absolute Lymphocytes 0.7 Absolute Monocytes 0.3 Absolute Eosinophils 0.0 Absolute Basophils 0.0 Sodium 135.7 L Potassium 4.4 Chloride 108 H Carbon Dioxide 19 L Anion Gap 9 BUN 42 H Creatinine 0.93 Est GFR ( Amer) > 60 Est GFR (Non-Af Amer) 59 L Glucose 108 Calcium 9.7 11/12/18 11/12/18 08:50 08:50 Creatine Kinase 38 CK-MB (CK-2) 0.52 Troponin I < 0.012 Assessment and Plan - Diagnosis (1) Generalized muscle weakness Is this a current diagnosis for this admission?: Yes Plan: Moderate improvement. Able to lift bilateral upper extremity against gravity. Moves bilateral lower extremity. Able to lift against gravity. Likely due to hypokalemic periodic paralysis. No EKG changes. Potassium 3.6, magnesium 1.6, CK 38, TSH 2.7, T4 1.1, T3 4.3 on admission. Electrolytes WNL. Continue telemetry, IV steroids, daily BMP, PT/ST/OT, supportive measures, spironolactone, acetazolamide. Patient would like to be discharged to rehab at [facility]. Discharge planning consulted. (2) Hypokalemic periodic paralysis Is this a current diagnosis for this admission?: Yes Plan: As per #1. (3) CAD (coronary artery disease) Qualifiers: Coronary Disease-Associated Artery/Lesion type: bypass graft, autologous artery Associated angina: without angina Qualified Code(s): I25.810 - Atherosclerosis of coronary artery bypass graft(s) without angina pectoris Is this a current diagnosis for this admission?: Yes Plan: Denies any anginal symptoms. Status post PCI x4 and CABG. [employer] Salesperson Dr. Demarcus Molina at [facility]. Continue antiplatelets, beta-blockers, CINDY, statins. (4) HTN (hypertension) Is this a current diagnosis for this admission?: Yes Plan: Restart home meds. Monitor vitals. Adjust meds as needed. PRN hydralazine. (5) Hyperlipidemia Is this a current diagnosis for this admission?: Yes Plan: Restart home meds. (6) CVA (cerebral vascular accident) Is this a current diagnosis for this admission?: Yes Plan: History of remote CVA. Optimize BP, antiplatelets, statins. PT/OT.
[2018-11-15] MEDS: RANOLAZINE 500 MG TAB.SR.12H PO SCH ×2 (10:37→22:51)
[2018-11-15] MEDS: PRAMIPEXOLE DI-HCL 0.5 MG TABLET PO SCH (10:38)
[2018-11-15] MEDS: NEBIVOLOL HCL 2.5 MG TABLET PO SCH (10:38)
[2018-11-15] MEDS: SPIRONOLACTONE 25 MG TABLET PO SCH (10:38)
[2018-11-15] MEDS: DOCUSATE SODIUM 100 MG CAPSULE PO SCH ×2 (10:38→17:38)
[2018-11-15] MEDS: FAMOTIDINE 20 MG TABLET PO SCH ×2 (10:38→22:50)
[2018-11-15] MEDS: ISOSORBIDE MONONITRATE 60 MG TAB.ER.24H PO SCH (10:38)
[2018-11-15] MEDS: FLUTICASONE PROPIONATE HFA 110 MCG/PUFF 12 GM MDI IH SCH ×2 (10:39→17:38)
[2018-11-15] MEDS: TICAGRELOR 90 MG TABLET PO SCH ×2 (10:39→17:38)
[2018-11-15] MEDS: HYDRALAZINE HCL INJ/PF 20 MG/1 ML SDV IV PRN (12:21)
[2018-11-15] MEDS: ATORVASTATIN CALCIUM 80 MG TABLET PO SCH (22:50)
[2018-11-16 04:44] LABS: ANION GAP 8 (5-19); BLOOD UREA NITROGEN 37 mg/dL (7-20); CALCIUM 9.6 mg/dL (8.4-10.2); CARBON DIOXIDE 21 mmol/L (22-30); CHLORIDE 107 mmol/L (98-107); GLUCOSE 114 mg/dL (75-110); POTASSIUM 4.5 mmol/L (3.6-5.0); SODIUM 136.3 mmol/L (137-145)
[2018-11-16] MEDS: METHYLPREDNISOLONE INJ 40 MG/1 ML SDV IV SCH ×3 (07:00→21:44)
[2018-11-16] MEDS: HEPARIN SOD (PORCINE) 5,000 UNIT/ML 1 ML SYRINGE SUBCUT SCH ×3 (07:00→21:44)
[2018-11-16] MEDS: NEBIVOLOL HCL 2.5 MG TABLET PO SCH (09:20)
[2018-11-16] MEDS: TICAGRELOR 90 MG TABLET PO SCH ×2 (09:20→17:21)
[2018-11-16] MEDS: SPIRONOLACTONE 25 MG TABLET PO SCH (09:20)
[2018-11-16] MEDS: DOCUSATE SODIUM 100 MG CAPSULE PO SCH ×2 (09:20→17:21)
[2018-11-16] MEDS: FLUTICASONE PROPIONATE HFA 110 MCG/PUFF 12 GM MDI IH SCH ×2 (09:21→17:21)
[2018-11-16] MEDS: PRAMIPEXOLE DI-HCL 0.5 MG TABLET PO SCH (09:21)
[2018-11-16] MEDS: FAMOTIDINE 20 MG TABLET PO SCH ×2 (09:21→21:43)
[2018-11-16] MEDS: RANOLAZINE 500 MG TAB.SR.12H PO SCH ×2 (09:21→21:44)
[2018-11-16] MEDS: ISOSORBIDE MONONITRATE 60 MG TAB.ER.24H PO SCH (09:21)
--- NOTE | 2018-11-16 10:48 | PDOC PROGRESS REPORT ---
Subjective Progress Note for:: 11/16/18 Subjective:: LIUDMILA BANERJEE is a 72 year old female past medical history of CAD status post PCI x12 stents, CABG, CVA, right carotid stent, hypertension, gastric cancer, recently hospitalized at [facility] at [facility] for generalized weakness" below neck paralysis", stayed there for 6 days, had extensive neurologic and cardiac work-up, which were all negative, diagnosed with hypokalemic periodic paralysis started on steroids, discharged to rehab, left rehab 2 weeks ago, is b ack to baseline, living independently, last Friday traveled to [place] to see her daughter, was doing fine until 2 days ago when she started feeling generalized weakness, last night about 1 AM she started to feel numbness below the neck similar to the episode prior to being hospitalized at [facility]. As per daughter patient was not discharged on either spironolactone or acetazolamide. Prior to recent hospitalization at [facility] her diuretics were increased by her automation software engineer. Lead Housekeeper is Dr.Gregory Molina. Denies any excessive exercise, high carbohydrate diet, fever, chills, nausea, vomiting, diarrhea, constipation or any urinary symptoms. Bowel and bladder fun ctions intact. On physical examination she is able to move her distal extremities however her proximal extremities are all weak, cannot left arms or legs against gravity. No focal neurological deficits, sensation is intact. Labs: Hemoglobin 10.3, potassium 3.6, magnesium 1.6, CK 38, CK-MB 0.52, troponin < 0012, TSH 2.7, T4 1.1, T3 4.3. 11/13/2018. No acute events overnight, significant improvement of her symptoms, patient able to lift bilateral upper extremity against gravity, able to turn in the bed. Still complaining of proximal bilateral lower extremity weakness, denies any fever, chills, nausea, vomiting, diarrhea, constipation or any urinary symptoms. 11/14/2018. No acute events overnight. Significant improvement of upper extremity weakness, patient able to feed herself, able to hold her upper extremities against gravity. Lower extremity patient able to bend her knees and move her legs however not able to hold lower extremities up against gravity. Denies any fever, chills, nausea, vomiting, diarrhea, constipation or any urinary symptoms. 11/15/2017. No acute events overnight. Significant improvement of weakness. Able to function properly with her upper extremities, lower extremities is improving, able to hold her legs against gravity for about a second, p.o. tole rant, having normal bowel and bladder movements. Denies any fever, chills, nausea, vomiting, diarrhea, constipation or any urinary symptoms. 11/16/2018. No acute events overnight. Improvement of weakness. Upper extremity function back to baseline, lower extremities is improving, able to hold her legs against gravity for about a second, p.o. tolerant, having normal bowel and bladder movements. Denies any fever, chills, nausea, vomiting, diarrhea, constipation or any urinary symptoms. Reason For Visit: GENERALIZED MUSCLE WEAKNESS,HYPOKALEMIC PERIODIC Physical Exam Vital Signs: Temp Pulse Resp BP Pulse Ox 97.7 F 53 L 19 179/62 H 98 11/16/18 07:40 11/16/18 07:40 11/16/18 07:40 11/16/18 07:40 11/16/18 07:40 Intake & Output 11/15/18 11/16/18 11/17/18 06:59 06:59 06:59 Intake Total 1342 955 Balance 1342 955 Weight 66.5 kg 66.1 kg General appearance: PRESENT: no acute distress, well-developed, well-nourished Head exam: PRESENT: atraumatic, normocephalic Respiratory exam: PRESENT: clear to auscultation keven. ABSENT: rales, rhonchi, wheezes Cardiovascular exam: PRESENT: RRR. ABSENT: diastolic murmur, rubs, systolic murmur Extremities exam: PRESENT: full ROM. ABSENT: calf tenderness, clubbing, pedal edema Neurological exam: PRESENT: alert, awake, oriented to person, oriented to place, oriented to time, oriented to situation, CN II-XII grossly intact, motor sensory deficit - BUE st 5/[address] 3/5 Results Laboratory Results: 11/15/18 06:18 11/16/18 03:40 11/16/18 03:40 Sodium 136.3 L Potassium 4.5 Chloride 107 Carbon Dioxide 21 L Anion Gap 8 BUN 37 H Creatinine 0.92 Est GFR ( Amer) > 60 Est GFR (Non-Af Amer) > 60 Glucose 114 H Calcium 9.6 11/12/18 11/12/18 08:50 08:50 Creatine Kinase 38 CK-MB (CK-2) 0.52 Troponin I < 0.012 Assessment and Plan - Diagnosis (1) Generalized muscle weakness Is this a current diagnosis for this admission?: Yes Plan: Moderate improvement. Able to lift bilateral upper extremity against gravity. Moves bilateral lower extremity. Able to lift against gravity. Likely due to hypokalemic periodic paralysis. No EKG changes. Potassium 3.6, magnesium 1.6, CK 38, TSH 2.7, T4 1.1, T3 4.3 on admission. Electrolytes WNL. Continue telemetry, IV steroids, daily BMP, PT/ST/OT, supportive measures, spironolactone, acetazolamide. Patient would like to be discharged to rehab at [facility]. Discharge planning consulted. (2) Hypokalemic periodic paralysis Is this a current diagnosis for this admission?: Yes Plan: As per #1. (3) CAD (coronary artery disease) Qualifiers: Coronary Disease-Associated Artery/Lesion type: bypass graft, autologous artery Associated angina: without angina Qualified Code(s): I25.810 - Atherosclerosis of coronary artery bypass graft(s) without angina pectoris Is this a current diagnosis for this admission?: Yes Plan: Denies any anginal symptoms. Status post PCI x4 and CABG. Lead Housekeeper Dr. Demarcus Molina at [facility]. Continue antiplatelets, beta-blockers, CINDY, statins. (4) HTN (hypertension) Is this a current diagnosis for this admission?: Yes Plan: Restart home meds. Monitor vitals. Adjust meds as needed. PRN hydralazine. (5) Hyperlipidemia Is this a current diagnosis for this admission?: Yes Plan: Restart home meds. (6) CVA (cerebral vascular accident) Is this a current diagnosis for this admission?: Yes Plan: History of remote CVA. Optimize BP, antiplatelets, statins. PT/OT.
[2018-11-16] MEDS: ATORVASTATIN CALCIUM 80 MG TABLET PO SCH (21:43)
[2018-11-17] MEDS: NITROGLYCERIN 0.4 MG/TAB 25 TAB/BOTTLE SL PRN ×4 (04:17→16:36)
[2018-11-17 04:38] LABS: ANION GAP 10 (5-19); BLOOD UREA NITROGEN 37 mg/dL (7-20); CALCIUM 9.6 mg/dL (8.4-10.2); CARBON DIOXIDE 20 mmol/L (22-30); CHLORIDE 105 mmol/L (98-107); GLUCOSE 118 mg/dL (75-110); POTASSIUM 4.7 mmol/L (3.6-5.0); SODIUM 134.9 mmol/L (137-145)
[2018-11-17] MEDS ORDERED: HYDRALAZINE HCL INJ/PF 20 MG/1 ML SDV IV PRN (04:57)
[2018-11-17] MEDS ORDERED: MORPHINE SULFATE 10 MG/ML INJ IV ONE (05:00)
[2018-11-17] MEDS: HEPARIN SOD (PORCINE) 5,000 UNIT/ML 1 ML SYRINGE SUBCUT SCH ×3 (05:36→21:57)
[2018-11-17] MEDS: METHYLPREDNISOLONE INJ 40 MG/1 ML SDV IV SCH ×3 (05:36→21:55)
[2018-11-17 06:04] LABS: CREATINE KINASE MB 0.77 ng/mL (<4.55); TROPONIN I 0.026 ng/mL
[2018-11-17] MEDS: RANOLAZINE 500 MG TAB.SR.12H PO SCH ×2 (09:36→21:56)
[2018-11-17] MEDS: SPIRONOLACTONE 25 MG TABLET PO SCH (09:36)
[2018-11-17] MEDS: PRAMIPEXOLE DI-HCL 0.5 MG TABLET PO SCH (09:37)
[2018-11-17] MEDS: ISOSORBIDE MONONITRATE 60 MG TAB.ER.24H PO SCH (09:37)
[2018-11-17] MEDS: NEBIVOLOL HCL 2.5 MG TABLET PO SCH (09:37)
[2018-11-17] MEDS: TICAGRELOR 90 MG TABLET PO SCH ×2 (09:37→18:17)
[2018-11-17] MEDS: FAMOTIDINE 20 MG TABLET PO SCH ×2 (09:38→21:56)
[2018-11-17] MEDS: FLUTICASONE PROPIONATE HFA 110 MCG/PUFF 12 GM MDI IH SCH ×2 (09:39→18:17)
[2018-11-17] MEDS: DOCUSATE SODIUM 100 MG CAPSULE PO SCH ×2 (09:40→18:18)
[2018-11-17] MEDS ORDERED: AMLODIPINE BESYLATE 5 MG TABLET PO SCH (10:00)
--- NOTE | 2018-11-17 10:07 | PDOC PROGRESS REPORT ---
Subjective Progress Note for:: 11/17/18 Subjective:: LIUDMILA BANERJEE is a 72 year old female past medical history of CAD status post PCI x12 stents, CABG, CVA, right carotid stent, hypertension, gastric cancer, recently hospitalized at [facility] at [facility] for generalized weakness" below neck paralysis", stayed there for 6 days, had extensive neurologic and cardiac work-up, which were all negative, diagnosed with hypokalemic periodic paralysis started on steroids, discharged to rehab, left rehab 2 weeks ago, is b ack to baseline, living independently, last Friday traveled to [place] to see her daughter, was doing fine until 2 days ago when she started feeling generalized weakness, last night about 1 AM she started to feel numbness below the neck similar to the episode prior to being hospitalized at [facility]. As per daughter patient was not discharged on either spironolactone or acetazolamide. Prior to recent hospitalization at [facility] her diuretics were increased by her liquor inspector. Effervescent Salts Compounder is Dr.Gregory Molina. Denies any excessive exercise, high carbohydrate diet, fever, chills, nausea, vomiting, diarrhea, constipation or any urinary symptoms. Bowel and bladder fun ctions intact. On physical examination she is able to move her distal extremities however her proximal extremities are all weak, cannot left arms or legs against gravity. No focal neurological deficits, sensation is intact. Labs: Hemoglobin 10.3, potassium 3.6, magnesium 1.6, CK 38, CK-MB 0.52, troponin < 0012, TSH 2.7, T4 1.1, T3 4.3. 11/13/2018. No acute events overnight, significant improvement of her symptoms, patient able to lift bilateral upper extremity against gravity, able to turn in the bed. Still complaining of proximal bilateral lower extremity weakness, denies any fever, chills, nausea, vomiting, diarrhea, constipation or any urinary symptoms. 11/14/2018. No acute events overnight. Significant improvement of upper extremity weakness, patient able to feed herself, able to hold her upper extremities against gravity. Lower extremity patient able to bend her knees and move her legs however not able to hold lower extremities up against gravity. Denies any fever, chills, nausea, vomiting, diarrhea, constipation or any urinary symptoms. 11/15/2017. No acute events overnight. Significant improvement of weakness. Able to function properly with her upper extremities, lower extremities is improving, able to hold her legs against gravity for about a second, p.o. tole rant, having normal bowel and bladder movements. Denies any fever, chills, nausea, vomiting, diarrhea, constipation or any urinary symptoms. 11/16/2018. No acute events overnight. Improvement of weakness. Upper extremity function back to baseline, lower extremities is improving, able to hold her legs against gravity for about a second, p.o. tolerant, having normal bowel and bladder movements. Denies any fever, chills, nausea, vomiting, diarrhea, constipation or any urinary symptoms. 11/17/2018. Overnight patient was complaining of chest pain, EKG unremarkable however troponin mildly elevated to 0.026 from 0.012. Resolved with nitro sublingual. On my encounter patient explained that she does not feel very well however her upper and lower extremities weakness are improving significantly. Any fever, chest pain, shortness of breath, nausea, vomiting, diarrhea, constipation or any urinary symptoms. P.o. tolerant and having normal bowel and bladder movements. Reason For Visit: GENERALIZED MUSCLE WEAKNESS,HYPOKALEMIC PERIODIC Physical Exam Vital Signs: Temp Pulse Resp BP Pulse Ox 97.7 F 59 L 29 H 187/67 H 99 11/17/18 04:19 11/17/18 07:00 11/17/18 04:19 11/17/18 04:19 11/17/18 04:19 Intake & Output 11/16/18 11/17/18 11/18/18 06:59 06:59 06:59 Intake Total 955 902 Balance 955 902 Weight 66.1 kg 66.1 kg General appearance: PRESENT: no acute distress, well-developed, well-nourished Head exam: PRESENT: atraumatic, normocephalic Respiratory exam: PRESENT: clear to auscultation keven. ABSENT: rales, rhonchi, wheezes Cardiovascular exam: PRESENT: RRR. ABSENT: diastolic murmur, rubs, systolic murmur GI/Abdominal exam: PRESENT: normal bowel sounds, soft. ABSENT: distended, guarding, mass, organolmegaly, rebound, tenderness Neurological exam: PRESENT: alert, awake, oriented to person, oriented to place, oriented to time, oriented to situation, CN II-XII grossly intact, motor sensory deficit - BUE 5/5 BLE 4/5 Results Laboratory Results: 11/15/18 06:18 11/17/18 03:50 11/17/18 03:50 Sodium 134.9 L Potassium 4.7 Chloride 105 Carbon Dioxide 20 L Anion Gap 10 BUN 37 H Creatinine 0.92 Est GFR ( Amer) > 60 Est GFR (Non-Af Amer) > 60 Glucose 118 H Calcium 9.6 11/12/18 11/12/18 11/17/18 08:50 08:50 05:16 Creatine Kinase 38 < 20 L CK-MB (CK-2) 0.52 Troponin I < 0.012 11/17/18 05:16 Creatine Kinase CK-MB (CK-2) 0.77 Troponin I 0.026 Assessment and Plan - Diagnosis (1) Chest pain Qualifiers: Ischemic chest pain type: stable angina pectoris Is this a current diagnosis for this admission?: Yes Plan: Overnight patient had chest pain EKG unremarkable however troponin elevated to 0.026. Continue antiplatelets, beta-blockers, CINDY, statins. PRN morphine and sublingual nitro. Trend troponins. If keeps rising we will consult cardiology. (2) Generalized muscle weakness Is this a current diagnosis for this admission?: Yes Plan: Moderate improvement. Able to lift bilateral upper extremity against gravity. Moves bilateral lower extremity. Able to lift against gravity. Likely due to hypokalemic periodic paralysis. No EKG changes. Potassium 3.6, magnesium 1.6, CK 38, TSH 2.7, T4 1.1, T3 4.3 on admission. Electrolytes WNL. Continue telemetry, IV steroids, daily BMP, PT/ST/OT, supportive measures, spironolactone, acetazolamide. Patient would like to be discharged to rehab at [facility]. Discharge planning consulted. (3) Hypokalemic periodic paralysis Is this a current diagnosis for this admission?: Yes Plan: As per #1. (4) CAD (coronary artery disease) Qualifiers: Coronary Disease-Associated Artery/Lesion type: bypass graft, autologous artery Associated angina: without angina Qualified Code(s): I25.810 - Atherosclerosis of coronary artery bypass graft(s) without angina pectoris Is this a current diagnosis for this admission?: Yes Plan: Denies any anginal symptoms. Status post PCI x4 and CABG. Effervescent Salts Compounder Dr. Demarcus Molina at [facility]. Continue antiplatelets, beta-blockers, CINDY, statins. (5) HTN (hypertension) Is this a current diagnosis for this admission?: Yes Plan: Restart home meds. Monitor vitals. Adjust meds as needed. PRN hydralazine. (6) Hyperlipidemia Is this a current diagnosis for this admission?: Yes Plan: Restart home meds. (7) CVA (cerebral vascular accident) Is this a current diagnosis for this admission?: Yes Plan: History of remote CVA. Optimize BP, antiplatelets, statins. PT/OT.
[2018-11-17 12:07] LABS: CREATINE KINASE MB 0.75 ng/mL (<4.55); TROPONIN I 0.015 ng/mL
--- NOTE | 2018-11-17 14:52 | EKG REPORT ---
SEVERITY:- NORMAL ECG - SINUS RHYTHM : Confirmed by: Maral Hooks 17-Nov-2018 14:52:12
--- NOTE | 2018-11-17 16:37 | PDOC TRANSFER SUMMARY ---
General Admission Date/PCP: 11/14/18 08:00 Resuscitation Status: Do Not Intubate - Transfer Diagnosis (1) Chest pain Is this a current diagnosis for this admission?: Yes (2) Generalized muscle weakness Is this a current diagnosis for this admission?: Yes (3) Hypokalemic periodic paralysis Is this a current diagnosis for this admission?: Yes (4) CAD (coronary artery disease) Is this a current diagnosis for this admission?: Yes (5) HTN (hypertension) Is this a current diagnosis for this admission?: Yes (6) Hyperlipidemia Is this a current diagnosis for this admission?: Yes (7) CVA (cerebral vascular accident) Is this a current diagnosis for this admission?: Yes - Transfer Medications Home Medications: Albuterol Sulfate [Ventolin 0.083% Neb 2.5 mg/3 mL Ampul] 2.5 mg NEB RTQ4HP PRN 11/12/18 Alprazolam [Xanax 0.5 mg Tablet] 0.5 mg PO Q8HP PRN 11/12/18 Ferrous Sulfate [Feosol 325 mg Tablet] 325 mg PO Q12 11/12/18 Fluticasone Propionate [Flovent Hfa 110 Mcg Inhalation Aerosol 12 gm] 2 puff IH BID 11/12/18 Isosorbide Mononitrate [Isosorbide Mononitrate ER] 120 mg PO DAILY 11/12/18 Nebivolol HCl [Bystolic 2.5 mg Tablet] 2.5 mg PO DAILY 11/12/18 Ondansetron HCl [Zofran 4 mg Tablet] 4 mg PO Q8HP PRN 11/12/18 Pramipexole Di-HCl [Mirapex 0.5 mg Tablet] 0.5 mg PO DAILY 11/12/18 Ranolazine [Ranolazine ER] 1,000 mg PO BID 11/12/18 Rosuvastatin Calcium [Crestor] 40 mg PO QHS 11/12/18 Ticagrelor [Brilinta 90 mg Tablet] 90 mg PO BID 11/12/18 Transfer Medications: Current Medications Acetaminophen (Tylenol 325 Mg Tablet) 325 mg PO Q4HP PRN PRN Reason: FOR PAIN SCALE 2-3 Stop: 12/12/18 13:26 Albuterol/Ipratropium (Duoneb 3 Ml Ampul) 3 ml NEB RTQ6HP PRN PRN Reason: SHORTNESS OF BREATH Stop: 12/12/18 13:26 Alprazolam (Xanax 0.5 Mg Tablet) 0.5 mg PO Q8HP PRN PRN Reason: ANXIETY Stop: 11/20/18 08:49 Amlodipine Besylate (Norvasc 5 Mg Tablet) 5 mg PO DAILY [facility] Stop: 12/17/18 09:59 Last Admin: 11/17/18 09:37 Dose: 5 mg Documented by: Atorvastatin Calcium (Lipitor 80 Mg Tablet) 80 mg PO QHS RIGO Stop: 12/13/18 21:59 Last Admin: 11/16/18 21:43 Dose: 80 mg Documented by: Docusate Sodium (Colace 100 Mg Capsule) 100 mg PO BID [facility] Stop: 12/12/18 17:59 Last Admin: 11/17/18 09:40 Dose: Not Given Documented by: Famotidine (Pepcid 20 Mg Tablet) 20 mg PO Q12 [facility] Stop: 12/12/18 21:59 Last Admin: 11/17/18 09:38 Dose: 20 mg Documented by: Fluticasone Propionate (Flovent Hfa 110 Mcg Inhalation Aerosol 12 Gm) 2 puff IH BID [facility] Stop: 12/13/18 09:59 Last Admin: 11/17/18 09:39 Dose: 2 puff Documented by: Heparin Sodium (Porcine) (Heparin Inj 5,000 Units/Ml 1 Ml Syringe) 5,000 unit SUBCUT Q8 [facility] Stop: 12/12/18 13:59 Last Admin: 11/17/18 13:45 Dose: 5,000 unit Documented by: Hydralazine HCl (Apresoline Inj/Pf 20 Mg/1 Ml Sdv) 20 mg IV Q4HP PRN PRN Reason: Give For Sbp > [150] Stop: 12/17/18 04:56 Last Admin: 11/17/18 15:24 Dose: 20 mg Documented by: Isosorbide Mononitrate (Imdur 60 Mg Tablet.Er) 120 mg PO DAILY [facility] Stop: 12/13/18 09:59 Last Admin: 11/17/18 09:37 Dose: 120 mg Documented by: Methylprednisolone Sodium Succinate (Solu-Medrol Inj/Pf 40 Mg/1 Ml Sdv) 40 mg IV Q8 [facility] Stop: 12/12/18 15:59 Last Admin: 11/17/18 13:45 Dose: 40 mg Documented by: Nebivolol (Bystolic 2.5 Mg Tablet) 2.5 mg PO DAILY [facility] Stop: 12/13/18 09:59 Last Admin: 11/17/18 09:37 Dose: 2.5 mg Documented by: Nitroglycerin (Nitrostat 0.4 Mg (1/150 Gr) Tabs 25/Bottle) 1 tab SL PRN PRN PRN Reason: CP Stop: 12/13/18 06:44 Last Admin: 11/17/18 04:30 Dose: 1 tab Documented by: Ondansetron HCl (Zofran Inj/Pf 4 Mg/2 Ml Sdv) 4 mg IV Q4HP PRN PRN Reason: FOR NAUSEA/VOMITING Stop: 12/12/18 13:26 Last Admin: 11/13/18 06:48 Dose: 4 mg Documented by: Oxycodone/Acetaminophen (Percocet 5-325 Mg Tablet) 1 tab PO Q4HP PRN PRN Reason: FOR PAIN SCALE 3-4 Stop: 11/19/18 13:26 Last Admin: 11/13/18 06:16 Dose: 1 tab Documented by: Pramipexole Dihydrochloride (Mirapex 0.5 Mg Tablet) 0.5 mg PO DAILY [facility] Stop: 12/13/18 09:59 Last Admin: 11/17/18 09:37 Dose: 0.5 mg Documented by: Ranolazine (Ranexa 500 Mg Tab.Sr) 1,000 mg PO Q12 [facility] Stop: 12/13/18 09:59 Last Admin: 11/17/18 09:36 Dose: 1,000 mg Documented by: Spironolactone (Aldactone 25 Mg Tablet) 50 mg PO DAILY [facility] Stop: 12/12/18 15:59 Last Admin: 11/17/18 09:36 Dose: 50 mg Documented by: Temazepam (Restoril 7.5 Mg Capsule) 7.5 mg PO HSP PRN PRN Reason: SLEEP OR INSOMNIA Stop: 11/19/18 13:26 Ticagrelor (Brilinta 90 Mg Tablet) 90 mg PO BID [facility] Stop: 12/13/18 09:59 Last Admin: 11/17/18 09:37 Dose: 90 mg Documented by: - Allergies Allergies/Adverse Reactions: diphenhydramine [From Benadryl] Allergy (Verified 11/12/18 07:31) promethazine [From Phenergan] Allergy (Verified 11/12/18 07:31) Hospital Course Hospital Course: LIUDMILA BANERJEE is a 72 year old female past medical history of CAD status post PCI x12 stents, CABG, CVA, right carotid stent, hypertension, gastric cancer, recently hospitalized at [facility] at [facility] for generalized weakness" below neck paralysis", stayed there for 6 days, had extensive neurologic and cardiac work-up, which were all negative, diagnosed with hypokalemic periodic paralysis started on steroids, discharged to rehab, left rehab 2 weeks ago, is back to baseline, living independently, last Friday traveled to [place] to see her daughter, was doing fine until 2 days ago when she started feeling generalized weakness, last night about 1 AM she started to feel numbness below the neck similar to the episode prior to being hospitalized at [facility]. As per daughter patient was not discharged on either spironolactone or acetazolamide. Prior to recent hospitalization at [facility] her diuretics were increased by her museum guide. New Car Make Ready Worker is Dr.Gregory Molina. Denies any excessive exercise, high carbohydrate diet, fever, chills, nausea, vomiting, diarrhea, constipation or any urinary symptoms. Bowel and bladder functions intact. On physical examination she is able to move her distal extremities however her proximal extremities are all weak, cannot left arms or legs against gravity. No focal neurological deficits, sensation is intact. (1) Chest pain Overnight patient had chest pain EKG unremarkable however troponin elevated to 0.026 0.015 respectively. Even though the EKG is negative for any acute changes and troponins are not significantly elevated but as per patient and her daughter who are present in the room, they state that she has very unusual presentation of ACS. Stating that her troponins are never elevated and EKGs are usually unremarkable. She is stating that her chest pain is similar to the one that she had in the past when she had heart attacks. Her chest pain is pressure-like, left-sided, associated with shortness of breath, relieved with sublingual nitroglycerin. Continue antiplatelets, beta-blockers, CINDY, statins. PRN morphine and sublingual nitro. I have contacted Dr. Tracy's office her museum guide who has graciously accepted to transfer the patient to [facility] [place] for further management. (2) Generalized muscle weakness Moderate improvement. Able to lift bilateral upper extremity against gravity. Moves bilateral lower extremity. Able to lift against gravity. Likely due to hypokalemic periodic paralysis. No EKG changes. Potassium 3.6, magnesium 1.6, CK 38, TSH 2.7, T4 1.1, T3 4.3 on admission. Electrolytes WNL. Continue telemetry, IV steroids, daily BMP, PT/ST/OT, supportive measures, spironolactone, acetazolamide. Patient would like to be discharged to rehab at [facility]. Discharge planning consulted. (3) Hypokalemic periodic paralysis As per #1. (4) CAD (coronary artery disease) Denies any anginal symptoms. Status post PCI x4 and CABG. New Car Make Ready Worker Dr. Demarcus Molina at [facility]. Continue antiplatelets, beta-blockers, CINDY, statins. (5) HTN (hypertension) Restart home meds. Monitor vitals. Adjust meds as needed. PRN hydralazine. (6) Hyperlipidemia Restart home meds. (7) CVA (cerebral vascular accident) History of remote CVA. Optimize BP, antiplatelets, statins. PT/OT. Physical Exam Vital Signs: Temp Pulse Resp BP Pulse Ox 98.0 F 56 L 20 176/56 H 99 11/17/18 11:51 11/17/18 14:00 11/17/18 11:51 11/17/18 11:51 11/17/18 11:51 Intake & Output 11/16/18 11/17/18 11/18/18 06:59 06:59 06:59 Intake Total 955 902 440 Balance 955 902 440 Weight 66.1 kg 66.1 kg General appearance: PRESENT: mild distress Head exam: PRESENT: atraumatic, normocephalic Respiratory exam: PRESENT: clear to auscultation keven. ABSENT: rales, rhonchi, wheezes Cardiovascular exam: PRESENT: RRR. ABSENT: diastolic murmur, rubs, systolic murmur GI/Abdominal exam: PRESENT: normal bowel sounds, soft. ABSENT: distended, guarding, mass, organolmegaly, rebound, tenderness Extremities exam: PRESENT: full ROM. ABSENT: calf tenderness, clubbing, pedal edema Neurological exam: PRESENT: alert, awake, oriented to person, oriented to place, oriented to time, oriented to situation, CN II-XII grossly intact, motor sensory deficit - BUE St 4/[address] 3/5 Results Laboratory Results: 11/15/18 06:18 11/17/18 03:50 11/17/18 03:50 Sodium 134.9 L Potassium 4.7 Chloride 105 Carbon Dioxide 20 L Anion Gap 10 BUN 37 H Creatinine 0.92 Est GFR ( Amer) > 60 Est GFR (Non-Af Amer) > 60 Glucose 118 H Calcium 9.6 11/12/18 11/12/18 11/17/18 08:50 08:50 05:16 Creatine Kinase 38 < 20 L CK-MB (CK-2) 0.52 Troponin I < 0.012 11/17/18 11/17/18 11/17/18 05:16 11:21 11:21 Creatine Kinase 24 L CK-MB (CK-2) 0.77 0.75 Troponin I 0.026 0.015
[2018-11-17 18:22] LABS: CREATINE KINASE MB 0.84 ng/mL (<4.55); TROPONIN I 0.021 ng/mL
[2018-11-17 20:58] VITALS: BP 136/58
[2018-11-17] MEDS: ATORVASTATIN CALCIUM 80 MG TABLET PO SCH (21:56)
== END 2018-11-17 22:30 | disposition short-term general hospital (02) | DRG 93 ==
LOC: ER 06:05 → INTOOBSV 12:16 → EH 12:16 → 3N 17:45 → OBSVTOIN 11-14 08:00
PROVIDERS: ADMIT Internal Medicine; ATTEND Internal Medicine
DX: G72.3 Periodic paralysis (principal); R07.9 Chest pain, unspecified; R79.89 Other specified abnormal findings of blood chemistry; I25.10 Atherosclerotic heart disease of native coronary artery without angina pectoris; Z95.1 Presence of aortocoronary bypass graft; Z95.3 Presence of xenogenic heart valve; I10 Essential (primary) hypertension; E78.5 Hyperlipidemia, unspecified; Z86.73 Personal history of transient ischemic attack (TIA), and cerebral infarction without residual deficits; I48.91 Unspecified atrial fibrillation; I25.2 Old myocardial infarction; J45.909 Unspecified asthma, uncomplicated; Z90.49 Acquired absence of other specified parts of digestive tract; Z85.820 Personal history of malignant melanoma of skin; Z79.899 Other long term (current) drug therapy; Z85.028 Personal history of other malignant neoplasm of stomach; Z66 Do not resuscitate; Z85.43 Personal history of malignant neoplasm of ovary; Z90.710 Acquired absence of both cervix and uterus; Z88.8 Allergy status to other drugs, medicaments and biological substances
CPT/HCPCS: 36415; 80048; 80053; 81001; 82550; 82553; 83735; 84132; 84439; 84443; 84481; 84484; 85025; 93005; 93010; 99285; G0378; J0360; J1644; J2270; J2405; J2920; J3480; J3490; J7050